=== PATIENT | female | born 1945 | race Caucasian/White ===

== ENCOUNTER 2023-06-02 11:06 | Day surgery (SDC) | payer MEDICARE, BC ==
[~2023-06-02 11:06] MED LIST: Midazolam 1 MG/ML 2 ML SDV ONE; Propofol 200 MG/20 ML SDV ONE
[2023-06-02] MEDS ORDERED: Sodium Chloride 0.9% 10 ML Syringe FLUSH PRN (11:15)
[2023-06-02] MEDS: Lactated Ringers 1,000 ML IV SCH (12:14)
[2023-06-02 14:30] VITALS: BP 125/69; PULSE 75
== END 2023-06-02 14:52 | disposition home or self-care (01) ==
LOC: LL.SDS 11:06
PROVIDERS: ATTEND Surgery
DX: K29.50 Unspecified chronic gastritis without bleeding (principal); K20.90 Esophagitis, unspecified without bleeding; K57.30 Diverticulosis of large intestine without perforation or abscess without bleeding; K21.9 Gastro-esophageal reflux disease without esophagitis; E78.00 Pure hypercholesterolemia, unspecified; Z77.22 Contact with and (suspected) exposure to environmental tobacco smoke (acute) (chronic); Z79.899 Other long term (current) drug therapy
CPT/HCPCS: 00812; J2250; J2704; J7120